=== PATIENT | male | born 1940 | race Caucasian/White ===

== ENCOUNTER → 2021-01-15 | Outpatient (CLI) | payer MEDICARE | END | disposition home or self-care (01) | LOC: RAH 10:00 | PROVIDERS: ATTEND Urology | DX: N28.1 Cyst of kidney, acquired (principal); N13.30 Unspecified hydronephrosis; N17.9 Acute kidney failure, unspecified; N13.4 Hydroureter | CPT/HCPCS: 76770 ==

== ENCOUNTER 2021-03-16 07:48 | Day surgery (SDC) | payer MEDICARE ==
[2021-03-13 16:18] LABS: BASOPHILS % (AUTO) 1.3 % (0.0-5.0); EOSINOPHILS % (AUTO) 2.8 % (0.0-8.0); HEMATOCRIT 30.8 % (42-54); LYMPHOCYTES % (AUTO) 21.3 % (21.0-51.0); MEAN CORPUSCULAR HEMOGLOBIN 26.8 pg (27.0-33.0); MEAN CORPUSCULAR HGB CONC 29.5 g/dL (32.0-36.0); MEAN CORPUSCULAR VOLUME 90.9 fL (79-99); MONOCYTES % (AUTO) 8.3 % (3.0-13.0); PLATELET COUNT (AUTO) 253 K/uL (130-400); RED BLOOD CELL COUNT(AUTO) 3.39 MIL/uL (4.50-6.20); RED CELL DISTRIBUTION WIDTH 15.4 % (11.0-15.5); WHITE BLOOD COUNT (AUTO) 9.5 K/uL (4.8-10.8)
[2021-03-13 16:26] LABS: CREATININE 2.7 mg/dL (0.5-1.5); POTASSIUM 5.8 mmol/L (3.5-5.1)
[2021-03-15 11:27] VITALS: BP 125/67
[~2021-03-16] VITALS: Ht 172.7 cm; Wt 74.1 kg
[2021-03-16] VITALS (17 sets, daily range): BP systolic 115–167; BP diastolic 46–83
[~2021-03-16 07:48] MED LIST: DUTA0.5C37 PO; LISI10TA24 PO; METO-391 PO; OMEP20CA12 PO; OMEP20TA25 PO; SIMV80TA91 PO; TAMS-1 PO; TRAM50TA4 PO
[2021-03-16] MEDS: LEVOFLOXACIN 500 MG/D5W 100 ML 100 ML IV SCH ×2 (08:30→10:35)
[2021-03-16] MEDS ORDERED: LACTATED RINGERS 1000ML 1,000 ML IV ONE (08:31)
[2021-03-16] MEDS ORDERED: PROPOFOL 10 MG/ML 20ML VIAL IV ONE (10:22)
[2021-03-16] MEDS ORDERED: LIDOCAINE PF 100MG/5ML (2%) SYRINGE 5ML ONE (10:22)
[2021-03-16] MEDS ORDERED: FENTANYL CITRATE PF 50 MCG/1 ML 2ML VIAL ONE (10:22)
[2021-03-16] MEDS ORDERED: GLYCOPYRROLATE 1 MG/5 ML SYRINGE ONE (10:53)
[2021-03-16] MEDS ORDERED: OPIUM/BELLADONNA ALKALOIDS 1 EACH SUPP.RECT RC ONE (11:39)
[2021-03-16] MEDS ORDERED: PHENAZOPYRIDINE HCL 200 MG TABLET PO SCH (13:15)
== END 2021-03-16 13:30 | disposition home or self-care (01) ==
LOC: DAH 07:48
PROVIDERS: ATTEND Urology
DX: N40.1 Benign prostatic hyperplasia with lower urinary tract symptoms (principal); Z20.822 Contact with and (suspected) exposure to COVID-19; R33.8 Other retention of urine; I12.9 Hypertensive chronic kidney disease with stage 1 through stage 4 chronic kidney disease, or unspecified chronic kidney disease; N18.9 Chronic kidney disease, unspecified; E78.5 Hyperlipidemia, unspecified; I25.2 Old myocardial infarction; K21.9 Gastro-esophageal reflux disease without esophagitis; Z95.5 Presence of coronary angioplasty implant and graft; Z87.891 Personal history of nicotine dependence; Z79.899 Other long term (current) drug therapy; Z98.890 Other specified postprocedural states
CPT/HCPCS: 36415 ×2; 52648; 80048; 84132; 85025; 93005; A4215; A4221; A4222; A4223; A4358; A4510; A4600; A4663; A4930; A6260; C9803; J1956; J2001; J2704; J3010; J3490; J7030; J7120; U0003

== ENCOUNTER → 2021-07-23 | Outpatient (CLI) | payer MEDICARE ==
[~2021-07-23] MED LIST changes: -OMEP20TA25 PO
== END | disposition home or self-care (01) ==
LOC: RAH 11:32
PROVIDERS: ATTEND Urology
DX: N28.1 Cyst of kidney, acquired (principal); N13.30 Unspecified hydronephrosis; N18.9 Chronic kidney disease, unspecified
CPT/HCPCS: 76770

== ENCOUNTER → 2021-10-16 | Outpatient (CLI) | payer MEDICARE ==
[~2021-10-16] MED LIST changes: +FUROSEMIDE 40MG VIAL ONE
== END | disposition home or self-care (01) ==
LOC: RAH 13:42
PROVIDERS: ATTEND Urology
DX: N13.30 Unspecified hydronephrosis (principal); N18.9 Chronic kidney disease, unspecified
CPT/HCPCS: 78708; A9562; J1940

== ENCOUNTER 2021-11-12 08:16 | Day surgery (SDC) | payer MEDICARE ==
[2021-11-09 16:06] VITALS: BP 144/73
[2021-11-09 16:11] LABS: BASOPHILS % (AUTO) 1.1 % (0.0-5.0); EOSINOPHILS % (AUTO) 0.7 % (0.0-8.0); HEMATOCRIT 39.8 % (42-54); LYMPHOCYTES % (AUTO) 15.5 % (21.0-51.0); MEAN CORPUSCULAR HEMOGLOBIN 27.5 pg (27.0-33.0); MEAN CORPUSCULAR HGB CONC 30.9 g/dL (32.0-36.0); MEAN CORPUSCULAR VOLUME 88.8 fL (79-99); MONOCYTES % (AUTO) 5.4 % (3.0-13.0); NEUTROPHILS % (AUTO) 77.1 % (40.0-77.0); PLATELET COUNT (AUTO) 288 K/uL (130-400); RED BLOOD CELL COUNT(AUTO) 4.48 MIL/uL (4.50-6.20); RED CELL DISTRIBUTION WIDTH 13.7 % (11.0-15.5); WHITE BLOOD COUNT (AUTO) 10.4 K/uL (4.8-10.8)
[2021-11-09 16:20] LABS: CREATININE 2.2 mg/dL (0.5-1.5); POTASSIUM 4.1 mmol/L (3.5-5.1)
[2021-11-09 16:23] LABS: INR 1.06 (0.85-1.15); PROTHROMBIN TIME 11.5 SEC (9.6-11.6)
[~2021-11-12] VITALS: Ht 172.7 cm; Wt 80.1 kg
[2021-11-12] VITALS (14 sets, daily range): BP systolic 104–155; BP diastolic 46–75
[~2021-11-12 08:16] MED LIST changes: +CEFTRIAXONE 1G VIAL IVP SCH; +CLOP75TA32 PO; -FUROSEMIDE 40MG VIAL ONE
[2021-11-12] MEDS ORDERED: LACTATED RINGERS 1000ML 1,000 ML IV ONE (08:35)
[2021-11-12] MEDS ORDERED: ASPI-1443 PO (09:11)
[2021-11-12] MEDS ORDERED: IOHEXOL-350 50ML VIAL IV ONE (11:00)
[2021-11-12] MEDS ORDERED: MIDAZOLAM HCL 1 MG/ML 2ML VIAL ONE (11:16)
[2021-11-12] MEDS ORDERED: PROPOFOL 10 MG/ML 20ML VIAL IV ONE (11:16)
[2021-11-12] MEDS ORDERED: LIDOCAINE PF 100MG/5ML (2%) SYRINGE 5ML ONE (11:16)
[2021-11-12] MEDS ORDERED: FENTANYL CITRATE PF 50 MCG/1 ML 2ML VIAL ONE (11:17)
[2021-11-12] MEDS ORDERED: CEFTRIAXONE 1G VIAL IVP ONE (11:40)
[2021-11-12] MEDS ORDERED: ONDANSETRON 4MG INJ ONE (11:53)
[2021-11-12] MEDS ORDERED: DEXAMETHASONE SOD PHOSPHATE 10MG/ML 1ML VIAL ONE (12:10)
[2021-11-12] MEDS ORDERED: EPHEDRINE SULFATE 50 MG/ML AMPULE ONE (12:10)
[2021-11-12] MEDS ORDERED: OPIUM/BELLADONNA ALKALOIDS 1 EACH SUPP.RECT RC ONE (12:31)
[2021-11-12] MEDS ORDERED: PHENAZOPYRIDINE HCL 200 MG TABLET ONE (13:44)
== END 2021-11-12 14:17 ==
LOC: DAH 08:16
PROVIDERS: ATTEND Urology
DX: N13.1 Hydronephrosis with ureteral stricture, not elsewhere classified (principal); I25.10 Atherosclerotic heart disease of native coronary artery without angina pectoris; I12.9 Hypertensive chronic kidney disease with stage 1 through stage 4 chronic kidney disease, or unspecified chronic kidney disease; N18.9 Chronic kidney disease, unspecified; Z95.5 Presence of coronary angioplasty implant and graft; I25.2 Old myocardial infarction; Z79.899 Other long term (current) drug therapy; Z20.822 Contact with and (suspected) exposure to COVID-19
CPT/HCPCS: 36415; 52332; 74420; 80048; 85025; 85610; 85730; 87635; 93005; A4215; A4221; A4222; A4223; A4340; A4354; A4358; A4510; A4600; A4663; A6260; C1758; C1769 ×2; C2617 ×2; C9803; J0696 ×2; J1100; J2001; J2250; J2405; J2704; J3010; J3490; J7120 ×2; Q9967

== ENCOUNTER 2022-02-22 07:13 | Day surgery (SDC) | payer MEDICARE ==
[2022-02-20 09:53] LABS: BASOPHILS % (AUTO) 1.4 % (0.0-5.0); EOSINOPHILS % (AUTO) 1.5 % (0.0-8.0); HEMATOCRIT 42.2 % (42-54); LYMPHOCYTES % (AUTO) 19.3 % (21.0-51.0); MEAN CORPUSCULAR HEMOGLOBIN 25.9 pg (27.0-33.0); MEAN CORPUSCULAR HGB CONC 29.9 g/dL (32.0-36.0); MEAN CORPUSCULAR VOLUME 86.8 fL (79-99); MONOCYTES % (AUTO) 7.3 % (3.0-13.0); NEUTROPHILS % (AUTO) 70.1 % (40.0-77.0); PLATELET COUNT (AUTO) 249 K/uL (130-400); RED BLOOD CELL COUNT(AUTO) 4.86 MIL/uL (4.50-6.20); RED CELL DISTRIBUTION WIDTH 14.4 % (11.0-15.5); WHITE BLOOD COUNT (AUTO) 9.3 K/uL (4.8-10.8)
[2022-02-20 10:06] LABS: POTASSIUM 4.7 mmol/L (3.5-5.1)
[2022-02-21 10:41] VITALS: BP 137/89
[2022-02-22] VITALS (17 sets, daily range): BP systolic 97–183; BP diastolic 45–86
[~2022-02-22] VITALS: Ht 172.7 cm; Wt 80.7 kg
[~2022-02-22 07:13] MED LIST changes: +ASPI-1443 PO; -CEFTRIAXONE 1G VIAL IVP SCH; -DUTA0.5C37 PO; +LEVOFLOXACIN 500 MG/D5W 100 ML 100 ML IV SCH; -METO-391 PO; -TRAM50TA4 PO
[2022-02-22] MEDS ORDERED: IOHEXOL-350 50ML VIAL IV ONE (10:08)
[2022-02-22] MEDS ORDERED: ROCURONIUM 10MG/1ML SYR 10 MG/ML ML ONE (12:23)
[2022-02-22] MEDS ORDERED: GLYCOPYRROLATE 1 MG/5 ML SYRINGE ONE (12:23)
[2022-02-22] MEDS ORDERED: PROPOFOL 10 MG/ML 20ML VIAL IV ONE ×2 (12:23→15:04)
[2022-02-22] MEDS ORDERED: FENTANYL CITRATE PF 50 MCG/1 ML 2ML VIAL ONE ×2 (12:24→15:13)
[2022-02-22] MEDS ORDERED: LACTATED RINGERS 1000ML 1,000 ML IV ONE (12:33)
[2022-02-22] MEDS ORDERED: ONDANSETRON 4MG INJ ONE (14:58)
[2022-02-22] MEDS ORDERED: NEOSTIGMINE 5MG/5ML SYR IV ONE (15:21)
[2022-02-22] MEDS ORDERED: PHENAZOPYRIDINE HCL 200 MG TABLET ONE (16:29)
== END 2022-02-22 17:00 | disposition home or self-care (01) ==
LOC: DAH 07:13
PROVIDERS: ATTEND Urology
DX: N13.1 Hydronephrosis with ureteral stricture, not elsewhere classified (principal); I12.9 Hypertensive chronic kidney disease with stage 1 through stage 4 chronic kidney disease, or unspecified chronic kidney disease; N18.9 Chronic kidney disease, unspecified; I25.2 Old myocardial infarction; I49.1 Atrial premature depolarization; I25.10 Atherosclerotic heart disease of native coronary artery without angina pectoris; K21.9 Gastro-esophageal reflux disease without esophagitis; Z87.891 Personal history of nicotine dependence; Z95.5 Presence of coronary angioplasty implant and graft; Z79.899 Other long term (current) drug therapy; Z98.890 Other specified postprocedural states
CPT/HCPCS: 36415; 52332; 74420; 80048; 85025; 87635; 93005; A4215; A4221; A4222; A4223; A4344; A4358; A4495; A4600; A4663; A6260; C1758; C1769; C2617 ×2; C9803; J1956; J2405; J2704; J2710; J3010 ×2; J3490; J7120 ×2; Q9967

== ENCOUNTER → 2022-07-30 | Outpatient (CLI) | payer MEDICARE ==
[~2022-07-30] MED LIST changes: -LEVOFLOXACIN 500 MG/D5W 100 ML 100 ML IV SCH
[2022-07-30 15:15] LABS: EOSINOPHILS % (AUTO) 0.7 % (0.0-8.0); HEMATOCRIT 38.8 % (42-54); MEAN CORPUSCULAR HEMOGLOBIN 26.3 pg (27.0-33.0); MEAN CORPUSCULAR HGB CONC 30.9 g/dL (32.0-36.0); MEAN CORPUSCULAR VOLUME 84.9 fL (79-99); MONOCYTES % (AUTO) 8.9 % (3.0-13.0); NEUTROPHILS % (AUTO) 66.1 % (40.0-77.0); PLATELET COUNT (AUTO) 293 K/uL (130-400); RED BLOOD CELL COUNT(AUTO) 4.57 MIL/uL (4.50-6.20); RED CELL DISTRIBUTION WIDTH 14.1 % (11.0-15.5); WHITE BLOOD COUNT (AUTO) 9.9 K/uL (4.8-10.8)
[2022-07-30 15:23] LABS: INR 1.02 (0.85-1.15); PROTHROMBIN TIME 11.1 SEC (9.6-11.6)
[2022-07-30 15:25] LABS: PARTIAL THROMBOPLASTIN TIME 26.5 SEC (26.3-35.5)
== END | disposition home or self-care (01) ==
LOC: LAB 14:52
PROVIDERS: ATTEND Internal Medicine
DX: R79.1 Abnormal coagulation profile (principal); N18.32 Chronic kidney disease, stage 3b
CPT/HCPCS: 36415; 85025; 85610; 85730

== ENCOUNTER 2022-08-02 06:18 | Day surgery (SDC) | payer MEDICARE ==
[2022-07-24 12:48] LABS: BASOPHILS % (AUTO) 1.4 % (0.0-5.0); EOSINOPHILS % (AUTO) 0.7 % (0.0-8.0); LYMPHOCYTES % (AUTO) 22.7 % (21.0-51.0); MEAN CORPUSCULAR HEMOGLOBIN 26.5 pg (27.0-33.0); MEAN CORPUSCULAR HGB CONC 30.8 g/dL (32.0-36.0); MONOCYTES % (AUTO) 8.1 % (3.0-13.0); NEUTROPHILS % (AUTO) 66.9 % (40.0-77.0); PLATELET COUNT (AUTO) 299 K/uL (130-400); RED BLOOD CELL COUNT(AUTO) 4.65 MIL/uL (4.50-6.20); WHITE BLOOD COUNT (AUTO) 8.5 K/uL (4.8-10.8)
[2022-07-24 12:55] LABS: CREATININE 1.7 mg/dL (0.5-1.5); POTASSIUM 5.7 mmol/L (3.5-5.1)
[2022-07-24 14:06] LABS: INR > 7.00 (0.85-1.15); PROTHROMBIN TIME > 90.0 SEC (9.6-11.6)
[2022-08-01 12:46] VITALS: BP 180/85
[2022-08-01 13:54] LABS: CREATININE 1.9 mg/dL (0.5-1.5); POTASSIUM 4.3 mmol/L (3.5-5.1)
[~2022-08-02] VITALS: Ht 172.7 cm; Wt 82.6 kg
[2022-08-02] VITALS (14 sets, daily range): BP systolic 146–165; BP diastolic 77–86
[~2022-08-02 06:18] MED LIST changes: -TAMS-1 PO
[2022-08-02] MEDS ORDERED: LACTATED RINGERS 1000ML 1,000 ML IV ONE (06:40)
[2022-08-02] MEDS ORDERED: LEVOFLOXACIN 500 MG/D5W 100 ML 100 ML ONE (06:41)
[2022-08-02] MEDS ORDERED: PROPOFOL 10 MG/ML 20ML VIAL IV ONE (08:29)
[2022-08-02] MEDS ORDERED: ROCURONIUM 10MG/1ML SYR 10 MG/ML ML ONE (08:29)
[2022-08-02] MEDS ORDERED: SUCCINYLCHOLINE 200MG/10ML SYR ONE (08:29)
[2022-08-02] MEDS ORDERED: MIDAZOLAM HCL 1 MG/ML 2ML VIAL ONE (08:29)
[2022-08-02] MEDS ORDERED: FENTANYL CITRATE PF 50 MCG/1 ML 2ML VIAL ONE (08:30)
[2022-08-02] MEDS ORDERED: GLYCOPYRROLATE 1 MG/5 ML SYRINGE ONE ×2 (09:23→09:53)
[2022-08-02] MEDS ORDERED: NEOSTIGMINE 5MG/5ML SYR IV ONE (09:53)
[2022-08-02] MEDS ORDERED: PHENAZOPYRIDINE HCL 200 MG TABLET ONE (11:02)
== END 2022-08-02 11:44 | disposition home or self-care (01) ==
LOC: DAH 06:18
PROVIDERS: ATTEND Urology
DX: N13.1 Hydronephrosis with ureteral stricture, not elsewhere classified (principal); N32.89 Other specified disorders of bladder; I12.9 Hypertensive chronic kidney disease with stage 1 through stage 4 chronic kidney disease, or unspecified chronic kidney disease; N18.9 Chronic kidney disease, unspecified; I25.10 Atherosclerotic heart disease of native coronary artery without angina pectoris; E66.9 Obesity, unspecified; Z95.5 Presence of coronary angioplasty implant and graft; Z79.82 Long term (current) use of aspirin; Z79.899 Other long term (current) drug therapy; Z98.890 Other specified postprocedural states
CPT/HCPCS: 80048 ×2; 85025; 85610; 85730; 87426 ×2; 36415 ×2; 93005; 52332; 74420; A6260; A4663; J7030; A4344; C1758; J7120; J3010; J0330; J3490 ×2; J2710; J1956; J2250; J2704; A4358; C2617; A4649; C1769; A4215; A4223; A4222; A4221; A4600

== ENCOUNTER 2023-04-25 06:23 | Day surgery (SDC) | payer MEDICARE ==
[2023-04-23 13:24] LABS: BASOPHILS % (AUTO) 1.2 % (0.0-5.0); EOSINOPHILS % (AUTO) 1.3 % (0.0-8.0); HEMATOCRIT 40.6 % (42-54); LYMPHOCYTES % (AUTO) 25.6 % (21.0-51.0); MEAN CORPUSCULAR HEMOGLOBIN 25.8 pg (27.0-33.0); MONOCYTES % (AUTO) 9.1 % (3.0-13.0); NEUTROPHILS % (AUTO) 62.5 % (40.0-77.0); PLATELET COUNT (AUTO) 210 K/uL (130-400); RED BLOOD CELL COUNT(AUTO) 4.72 MIL/uL (4.50-6.20); RED CELL DISTRIBUTION WIDTH 14.9 % (11.0-15.5); WHITE BLOOD COUNT (AUTO) 7.7 K/uL (4.8-10.8)
[2023-04-23 13:31] LABS: CREATININE 1.7 mg/dL (0.5-1.5); POTASSIUM 4.4 mmol/L (3.5-5.1)
[2023-04-23 13:39] LABS: INR 0.96 (0.85-1.15); PROTHROMBIN TIME 11.2 SEC (9.6-11.6)
[2023-04-23 13:40] LABS: PARTIAL THROMBOPLASTIN TIME 27.8 SEC (26.3-35.5)
[2023-04-23 13:49] VITALS: BP 181/95
[~2023-04-25] VITALS: Ht 172.7 cm; Wt 85.8 kg
[2023-04-25] VITALS (18 sets, daily range): BP systolic 127–174; BP diastolic 62–94
[~2023-04-25 06:23] MED LIST changes: +DUTA0.5C37 PO; +LEVOFLOXACIN 500 MG/D5W 100 ML 100 ML IV ONE
[2023-04-25] MEDS ORDERED: LEVOFLOXACIN 500 MG/D5W 100 ML 100 ML ONE (06:40)
[2023-04-25] MEDS ORDERED: LACTATED RINGERS 1000ML 1,000 ML IV ONE (06:40)
[2023-04-25] MEDS ORDERED: MIDAZOLAM HCL 1 MG/ML 2ML VIAL ONE (07:19)
[2023-04-25] MEDS ORDERED: PROPOFOL 10 MG/ML 20ML VIAL IV ONE (07:19)
[2023-04-25] MEDS ORDERED: FENTANYL CITRATE PF 50 MCG/1 ML 2ML VIAL ONE ×3 (07:20→08:45)
[2023-04-25] MEDS ORDERED: ROCURONIUM 10MG/1ML SYR 10 MG/ML ML ONE (07:46)
[2023-04-25] MEDS ORDERED: IOHEXOL-350 50ML VIAL IV ONE (07:55)
[2023-04-25] MEDS ORDERED: PHENYLEPHRINE HCL 10 MG/ML 1ML VIAL IV ONE (08:04)
[2023-04-25] MEDS ORDERED: GLYCOPYRROLATE 1 MG/5 ML SYRINGE ONE (08:45)
[2023-04-25] MEDS ORDERED: NEOSTIGMINE 5MG/5ML SYR IV ONE (08:45)
[2023-04-25] MEDS ORDERED: PHENAZOPYRIDINE HCL 200 MG TABLET ONE (10:10)
[2023-04-28] MEDS ORDERED: LEVOFLOXACIN 500 MG/D5W 100 ML 100 ML IV ONE (05:00)
== END 2023-04-25 10:40 | disposition home or self-care (01) ==
LOC: DAH 06:23
PROVIDERS: ATTEND Urology
DX: N13.1 Hydronephrosis with ureteral stricture, not elsewhere classified (principal); Z20.822 Contact with and (suspected) exposure to COVID-19; N13.8 Other obstructive and reflux uropathy; N32.89 Other specified disorders of bladder; I25.10 Atherosclerotic heart disease of native coronary artery without angina pectoris; K21.9 Gastro-esophageal reflux disease without esophagitis; I12.9 Hypertensive chronic kidney disease with stage 1 through stage 4 chronic kidney disease, or unspecified chronic kidney disease; N18.9 Chronic kidney disease, unspecified; I25.2 Old myocardial infarction; Z79.01 Long term (current) use of anticoagulants; Z95.5 Presence of coronary angioplasty implant and graft; Z79.82 Long term (current) use of aspirin; Z79.899 Other long term (current) drug therapy; Z79.02 Long term (current) use of antithrombotics/antiplatelets
CPT/HCPCS: 80048; 85025; 85610; 85730; 87426; 36415; 93005; 52332; 52351; 74420; A6260; J7120 ×2; A4344; C1758; J3010 ×3; J3490; J2710; J1956; J2704; Q9967; A4358; C1769; C2617; A4215; A4223; A4222; A4221; A4600; A4510; J2250; J2370

== ENCOUNTER 2024-04-02 07:51 | Day surgery (SDC) | payer MEDICARE ==
[2024-03-31 15:58] LABS: BASOPHILS % (AUTO) 1.1 % (0.0-5.0); EOSINOPHILS # (AUTO) 0.11 K/uL (0.00-0.70); EOSINOPHILS % (AUTO) 1.2 % (0.0-8.0); HEMATOCRIT 43.9 % (42-54); IMMATURE GRANULOCYTE ABSOLUTE 0.02 K/uL (0-1); LYMPHOCYTES # (AUTO) 2.2 K/uL (1.0-4.8); LYMPHOCYTES % (AUTO) 23.3 % (21.0-51.0); MEAN CORPUSCULAR HEMOGLOBIN 25.6 pg (27.0-33.0); MEAN CORPUSCULAR HGB CONC 30.3 g/dL (32.0-36.0); MEAN CORPUSCULAR VOLUME 84.6 fL (79-99); MONOCYTES # (AUTO) 0.8 K/uL (0.1-1.0); MONOCYTES % (AUTO) 8.1 % (3.0-13.0); NEUTROPHILS # (AUTO) 6.2 K/uL (1.8-7.7); NEUTROPHILS % (AUTO) 66.1 % (40.0-77.0); PLATELET COUNT (AUTO) 253 K/uL (130-400); RED BLOOD CELL COUNT(AUTO) 5.19 MIL/uL (4.50-6.20); RED CELL DISTRIBUTION WIDTH 15.6 % (11.0-15.5); WHITE BLOOD COUNT (AUTO) 9.4 K/uL (4.8-10.8)
[2024-03-31 16:00] VITALS: BP 145/86; PULSE 90; RESP 19
[2024-03-31 16:11] LABS: CREATININE 1.9 mg/dL (0.5-1.3); POTASSIUM 4.6 mmol/L (3.5-5.1)
[2024-04-02] VITALS (17 sets, daily range): BP systolic 140–181; BP diastolic 63–93; PULSE 63–88; RESP 12–21
[~2024-04-02] VITALS: Ht 172.7 cm; Wt 84.2 kg
[~2024-04-02 07:51] MED LIST changes: -LEVOFLOXACIN 500 MG/D5W 100 ML 100 ML IV ONE
[2024-04-02] MEDS: LEVOFLOXACIN 500 MG/D5W 100 ML 100 ML ONE (10:08)
[2024-04-02] MEDS ORDERED: KETAMINE 50MG/ML SYRINGE 50 MG/ML DISP.SYRIN ONE (10:09)
[2024-04-02] MEDS: LACTATED RINGERS 1000ML 1,000 ML IV ONE (10:09)
[2024-04-02] MEDS ORDERED: LEVO750T68 PO (10:14)
[2024-04-02] MEDS ORDERED: PROPOFOL 10 MG/ML 20ML VIAL IV ONE (10:17)
[2024-04-02] MEDS ORDERED: ROCURONIUM BROMIDE 10MG/1ML 5ML VL ONE (10:17)
[2024-04-02] MEDS ORDERED: GLYCOPYRROLATE 0.2 MG/ML 5 ML VIAL ONE (12:06)
[2024-04-02] MEDS ORDERED: SUGAMMADEX SODIUM 200 MG/2 ML VIAL IV ONE (12:13)
[2024-04-02] MEDS ORDERED: IOHEXOL-350 50ML VIAL IV ONE ×2 (12:24→16:22)
[2024-04-02] MEDS: ONDANSETRON 4MG INJ ONE (12:47)
[2024-04-02] MEDS: PHENAZOPYRIDINE HCL 200 MG TABLET PO ONE (14:03)
== END 2024-04-02 14:20 | disposition home or self-care (01) ==
LOC: DAH 07:51
PROVIDERS: ATTEND Urology
DX: N13.1 Hydronephrosis with ureteral stricture, not elsewhere classified (principal); E78.00 Pure hypercholesterolemia, unspecified; I10 Essential (primary) hypertension; I25.10 Atherosclerotic heart disease of native coronary artery without angina pectoris; Z87.891 Personal history of nicotine dependence; Z79.899 Other long term (current) drug therapy; Z95.5 Presence of coronary angioplasty implant and graft; Z98.890 Other specified postprocedural states
CPT/HCPCS: 80048; 85025; 36415; 93005; 50590; 52332; 74420; A6260; A4663; C1876; J7120 ×2; A4314; J1956; J3490 ×3; J2704; J2405; Q9967 ×2; A4358; C1769 ×2; A4215; A4222; A4221; A4223 ×2; A4600; A4510

== ENCOUNTER 2024-07-05 10:21 | Observation (INO) | payer MEDICARE ==
[2024-07-02 13:01] VITALS: BP 133/77; PULSE 107; RESP 16; TEMP 98
[2024-07-02 13:18] LABS: EOSINOPHILS # (AUTO) 0.06 K/uL (0.00-0.70); EOSINOPHILS % (AUTO) 0.6 % (0.0-8.0); HEMATOCRIT 44.8 % (42-54); IMMATURE GRANULOCYTE ABSOLUTE 0.02 K/uL (0-1); LYMPHOCYTES # (AUTO) 1.8 K/uL (1.0-4.8); LYMPHOCYTES % (AUTO) 17.5 % (21.0-51.0); MEAN CORPUSCULAR HEMOGLOBIN 25.7 pg (27.0-33.0); MEAN CORPUSCULAR HGB CONC 30.4 g/dL (32.0-36.0); MEAN CORPUSCULAR VOLUME 84.7 fL (79-99); MONOCYTES # (AUTO) 0.6 K/uL (0.1-1.0); MONOCYTES % (AUTO) 5.7 % (3.0-13.0); NEUTROPHILS # (AUTO) 7.7 K/uL (1.8-7.7); PLATELET COUNT (AUTO) 297 K/uL (130-400); RED BLOOD CELL COUNT(AUTO) 5.29 MIL/uL (4.50-6.20); RED CELL DISTRIBUTION WIDTH 15.2 % (11.0-15.5); WHITE BLOOD COUNT (AUTO) 10.3 K/uL (4.8-10.8)
[2024-07-02 13:29] LABS: CREATININE 2.1 mg/dL (0.5-1.3); POTASSIUM 4.4 mmol/L (3.5-5.1)
[~2024-07-05] VITALS: Ht 170.2 cm; Wt 84.5 kg
[~2024-07-05 10:21] MED LIST changes: -ASPI-1443 PO; -DUTA0.5C37 PO; -LISI10TA24 PO; -SIMV80TA91 PO
[2024-07-05 10:57] VITALS: BP 161/92; PULSE 88; RESP 16; TEMP 98.7
[2024-07-05] MEDS ORDERED: IOHEXOL-350 50ML VIAL IV ONE (13:05)
[2024-07-05] MEDS ORDERED: LIDOCAINE HCL 400MG/20ML VIAL ONE (13:05)
[2024-07-05] MEDS ORDERED: HEParin-NS 1,000 UNIT/500 ML 500 ML IV ONE (13:05)
[2024-07-05] MEDS ORDERED: FENTanyl CITRate PF 50 MCG/1 ML 2ML VIAL ONE (13:59)
[2024-07-05] MEDS ORDERED: MIDAZOLAM HCL 1 MG/ML 2ML VIAL ONE ×2 (13:59→14:38)
[2024-07-05] MEDS ORDERED: ceFAZolin SODIUM 1 GM VIAL ONE (14:33)
[2024-07-05 15:40] VITALS: BP 132/71; PULSE 68; RESP 16; TEMP 97.8
== END 2024-07-05 16:15 | disposition left against medical advice (07) ==
LOC: DAH 10:21 → DAHIP 10:22 → DAH 10:22 → DAHIP 16:20
PROVIDERS: ADMIT Urology; ATTEND Urology
DX: T83.022A Displacement of nephrostomy catheter, initial encounter (principal); N40.0 Benign prostatic hyperplasia without lower urinary tract symptoms; Y92.89 Other specified places as the place of occurrence of the external cause
CPT/HCPCS: 80048; 85025; 36415; 50432; 50384; 87071; 87205; A6260; C1894 ×4; C1769 ×2; C1729; C1874; G0378; A4663; J3010; J0690; J3490; J2250 ×2; J1644; Q9967; A4215; A4223; A4222; A4221; 99156; 99157

== ENCOUNTER 2024-08-12 08:02 | Day surgery (SDC) | payer MEDICARE ==
[2024-08-10 09:32] LABS: BASOPHILS # (AUTO) 0.11 K/uL (0.00-0.20); BASOPHILS % (AUTO) 1.1 % (0.0-5.0); EOSINOPHILS # (AUTO) 0.23 K/uL (0.00-0.70); EOSINOPHILS % (AUTO) 2.3 % (0.0-8.0); HEMATOCRIT 45.3 % (42-54); IMMATURE GRANULOCYTE ABSOLUTE 0.05 K/uL (0-1); LYMPHOCYTES # (AUTO) 1.4 K/uL (1.0-4.8); LYMPHOCYTES % (AUTO) 13.5 % (21.0-51.0); MEAN CORPUSCULAR HEMOGLOBIN 25.3 pg (27.0-33.0); MEAN CORPUSCULAR VOLUME 84.2 fL (79-99); MONOCYTES # (AUTO) 0.8 K/uL (0.1-1.0); MONOCYTES % (AUTO) 7.8 % (3.0-13.0); NEUTROPHILS # (AUTO) 7.6 K/uL (1.8-7.7); NEUTROPHILS % (AUTO) 74.8 % (40.0-77.0); PLATELET COUNT (AUTO) 306 K/uL (130-400); RED BLOOD CELL COUNT(AUTO) 5.38 MIL/uL (4.50-6.20); WHITE BLOOD COUNT (AUTO) 10.2 K/uL (4.8-10.8)
[2024-08-10 09:41] VITALS: BP 169/91; PULSE 83; RESP 18; TEMP 97.3
[2024-08-10 09:47] LABS: INR 1.04 (0.85-1.15); PROTHROMBIN TIME 11.2 SEC (9.6-11.6)
[2024-08-10 09:48] LABS: PARTIAL THROMBOPLASTIN TIME 27.6 SEC (26.3-35.5)
[2024-08-10 09:51] LABS: CREATININE 1.9 mg/dL (0.5-1.3); POTASSIUM 4.5 mmol/L (3.5-5.1)
--- NOTE | 2024-08-10 10:32 | EKG ---
[facility] Test Date: 2024-08-10 Test Time: 09:20:22 Pat Name: SUDARSHAN LEMOS Department: [facility] Room: Gender: M Software Requirements Engineer: [id number] : 1940 Requested By: PARUL ANNA Order Number: [id number] Reading MD: Rahul Jaffe Measurements Intervals [place] Rate: 72 P: 25 [place]: 200 QRS: -55 QRSD: 99 T: 9 QT: 407 QTc: 445 Interpretive Statements Second degree AV block, Mobitz II Probable left ventricular hypertrophy Inferior infarct, old Compared to ECG 05/12/2024 12:32:08 Second-degree AV block, Mobitz type I (Wenckebach) now present Sinus rhythm no longer present First degree AV block no longer present Myocardial infarct finding still present Electronically Signed On 08-11-2024 16:10:52 CDT by Rahul Jaffe Please click the below link to view image of tracing.
[~2024-08-12] VITALS: Ht 172.7 cm; Wt 82.4 kg
[2024-08-12] VITALS (8 sets, daily range): BP systolic 116–174; BP diastolic 64–90; PULSE 71–82; RESP 15–22; TEMP 97.4–97.8
[2024-08-12] MEDS ORDERED: 0.9%NACL 1000ML 1,000 ML IV ONE (08:37)
[2024-08-12] MEDS ORDERED: LIDOCAINE HCL 400MG/20ML VIAL ONE (11:29)
[2024-08-12] MEDS ORDERED: FENTanyl CITRate PF 50 MCG/1 ML 2ML VIAL ONE (11:29)
[2024-08-12] MEDS ORDERED: MIDAZOLAM HCL 1 MG/ML 2ML VIAL ONE (11:29)
[2024-08-12] MEDS ORDERED: IOHEXOL-350 75 ML VIAL IV ONE (11:30)
[2024-08-12] MEDS ORDERED: HEParin-NS 1,000 UNIT/500 ML 500 ML IV ONE (11:30)
[2024-08-12] MEDS ORDERED: cefTRIAXone 1G VIAL ONE (11:40)
--- NOTE | 2024-08-12 16:26 | CCATH ---
INDICATIONS: History of left nephrostomy tube and retained right double-J stent. DESCRIPTION OF PROCEDURE: Informed consent was obtained after discussion of the risks, benefits and alternatives of the treatment. The bilateral flank was prepped and draped in sterile fashion. 1% lidocaine was used for anesthesia. Contrast was injected through the existing left nephrostomy tube and the nephrostomy tube was removed, maintaining wire access. The system was advanced into the urinary bladder and a 8-Yemeni 24 cm double-J stent was placed and formed in the urinary bladder and renal pelvis. The left nephrostomy tube was removed and sterile dressing applied. Attention was directed to the right kidney. Using a combination of ultrasound and fluoroscopy guidance, the sheath was placed into the collecting system and multiple unsuccessful attempts were made to retrieve the retained right double-J stent. A 10-Yemeni nephrostomy tube was left in place for future access attempt. The patient tolerated the procedure well. Findings and recommendations discussed with the patient at the time of the procedure. IMPRESSION: 1. Uneventful placement of a left double-J stent with a double-J stent formed in the left renal pelvis and urinary bladder. The left nephrostomy tube was removed. 2. Multiple unsuccessful attempts were made to remove the retained right ureteral stent. A right nephrostomy tube was left in place for future attempt. The patient tolerated the procedure well. TID: [id number] RECEIPT: [id number]
== END 2024-08-12 16:35 | disposition home or self-care (01) ==
LOC: DAH 08:02
PROVIDERS: ATTEND Urology
DX: N13.30 Unspecified hydronephrosis (principal); I44.1 Atrioventricular block, second degree; Z79.899 Other long term (current) drug therapy; Z98.890 Other specified postprocedural states; Z79.01 Long term (current) use of anticoagulants
CPT/HCPCS: 80048; 85025; 85610; 85730; 36415; 93005; 50693; 76942; A6260; C1769 ×4; C1894 ×3; C2617; C1773; C1729; J3010; J3490; J7030; J0696; J2250; J1644; Q9967; A4215; A4222; A4221; A4663; A4216; A4606; A4223 ×3; 50432; 99156; 99157